=== PATIENT | male | born 1995 | race Caucasian/White ===

== ENCOUNTER 2019-08-11 14:00 | Emergency (ER) | payer OTHER ==
[~2019-08-11] VITALS: Ht 180.3 cm; Wt 74.8 kg
[~2019-08-11 14:00] MED LIST: ALBU3IS INH; ALBU90OI61 INH; AZIT250 PO; HYDACE5 PO; IBUP600 PO; PROM25 PO
[2019-08-11] MEDS ORDERED: Robaxin-750750 MG PO (14:29)
[2019-08-11] MEDS ORDERED: IBU800 MG PO (14:29)
== END 2019-08-11 14:35 | disposition home or self-care (01) ==
LOC: ER 14:00
DX: M95.8 Other specified acquired deformities of musculoskeletal system (principal); Z79.899 Other long term (current) drug therapy
CPT/HCPCS: 99283